=== PATIENT | female | born 1965 | race African-American/Black ===

== ENCOUNTER 2017-08-04 20:58 | Emergency (ER) | payer SELFPAY ==
[~2017-08-04] VITALS: Ht 162.6 cm; Wt 81.6 kg
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
[2017-08-04] MEDS ORDERED: HYDROCODONE/APAP 10/325MG 1 EA TABLET ONE (22:58)
[2017-08-04] MEDS ORDERED: ONDANSETRON 4 MG TAB.RAPDIS ONE (22:59)
[2017-08-04] MEDS ORDERED: HYDROCODONE/APAP 10/325MG 1 EA TABLET PO ONE (23:00)
[2017-08-04] MEDS ORDERED: ONDANSETRON 4 MG TAB.RAPDIS SL ONE (23:00)
--- NOTE | 2017-08-05 00:28 | NUR ---
PT IN RADIOLOGY FOR IMAGING STUDIES
--- NOTE | 2017-08-05 00:28 | NUR ---
Halima carpio in [place] - 08/05/17 at 0028 by APASCUAL PT IN [facility]
--- NOTE | 2017-08-05 01:21 | NUR ---
report given to [place] charge nurse.
[2017-08-05 02:29] VITALS: BP 129/70
--- NOTE | 2017-08-05 02:30 | NUR ---
Patient discharged to family member for transport home in stable condition. Written and verbal after care instructions given. Patient verbalizes understanding of instruction. Pt ambulatory with a steady gait. VSS, NAD noted on DC. Denies complaint on DC.
--- NOTE | 2017-08-05 02:31 | NUR ---
DC WITH Rx FOR ULTRAM BY DR. LINK
== END 2017-08-05 02:32 | disposition home or self-care (01) ==
LOC: ER 20:59
DX: M54.5 Low back pain (principal); M54.2 Cervicalgia; G89.29 Other chronic pain; V49.59XA Passenger injured in collision with other motor vehicles in traffic accident, initial encounter; Y93.89 Activity, other specified; Y92.410 Unspecified street and highway as the place of occurrence of the external cause; Y99.8 Other external cause status
CPT/HCPCS: 71045; 72074; 72110; 72125; 99284; A4606; Q0162; Z7610